=== PATIENT | female | born 1970 | race Caucasian/White ===

== ENCOUNTER 2017-01-04 09:26 | Emergency (ER) | payer BC ==
[~2017-01-04] VITALS: Ht 170.2 cm; Wt 112.0 kg
[2017-01-04 10:23] LABS: HEMATOCRIT 42.6 % (36.0-46.0); MCHC 33.1 G/DL (30.0-36.0); MCV 84.7 FL (83-99); MEAN PLAT.VOLUME 9.1 uM^3 (9.5-12.4); PLATELET COUNT 304 K/uL (156-360); RBC DIS.WIDTH-CV 13.4 % (11.8-14.6); RBC DIS.WIDTH-SD 41.9 % (39-53); RED BLOOD COUNT 5.03 M/uL (3.80-5.20); WHITE BLOOD COUNT 13.5 K/uL (4.1-10.2)
[2017-01-04 10:32] LABS: D-DIMER ELISA < 150.00 ng/mLDDU (<230)
[2017-01-04 10:34] LABS: CHLORIDE 98 mEq/L (99-109); POTASSIUM 3.4 mEq/L (3.7-5.4); SODIUM 137 mEq/L (136-147)
[2017-01-04 10:36] LABS: GLUCOSE 160 mg/dL (70-99)
[2017-01-04 10:37] LABS: ANION GAP 14 MEQ/L (2-14)
[2017-01-04 10:40] LABS: GFR ESTIMATE (CALCULATED) 57 mL/min/
[2017-01-04 10:41] LABS: UREA NITROGEN (BUN) 18 mg/dL (9-23)
[2017-01-04 10:45] LABS: TROP-I INTERPRETATION NEGATIVE; TROPONIN-I < 0.01 ng/mL (0.0-0.30)
[2017-01-04] MEDS ORDERED: PROVENTIL HFA6.7 GM IH (11:01)
[2017-01-04] MEDS ORDERED: PREDNISONE20 MG PO (11:01)
[2017-01-04 11:13] VITALS: BP 128/72
== END 2017-01-04 11:14 | disposition home or self-care (01) ==
LOC: EME 09:26
PROVIDERS: Emergency Medicine
DX: R07.9 Chest pain, unspecified (principal); R05 Cough; M54.6 Pain in thoracic spine; R06.2 Wheezing
CPT/HCPCS: 80048; 83880; 84484; 85027; 85379; 93005; 94640; 99281; 99284